=== PATIENT | male | born 1970 ===

== ENCOUNTER 2022-09-17 15:08 | Outpatient (CLI) | payer OTHER | END 2022-09-17 15:17 | disposition home or self-care (01) | LOC: RAD 15:08 | PROVIDERS: ATTEND Neurological Surgery | DX: M54.2 Cervicalgia (principal) ==

== ENCOUNTER 2025-01-03 13:50 | Outpatient (CLI) | payer OTHER | END 2025-01-03 13:58 | disposition home or self-care (01) | LOC: RAD 13:50 | PROVIDERS: ATTEND Family Medicine Geriatric Medicine | DX: M25.512 Pain in left shoulder (principal) ==

== ENCOUNTER 2025-01-04 12:05 | Outpatient (CLI) | payer OTHER ==
[2025-01-04 12:26] LABS: BASO % 0.9 % (0.1-1.2); EOS # 0.05 (0.04-0.54); EOS % 1.5 % (0.7-7.0); LYMPH # 0.67 (1.18-3.74); LYMPH % 19.6 % (19.3-53.1); MEAN PLATELET VOLUME 10.10 fl (9.4-12.4); MONO # 0.40 (0.24-0.82); MONO % 11.7 % (4.7-12.5); NEUT # 2.25 (1.56-6.13); NEUT % 66.0 % (34.0-71.1); RED CELL DISTRIBUTION WIDTH 11.9 % (11.6-14.4); URINE APPEARANCE Clear; URINE BILIRRUBIN Negative (NEGATIVE); URINE BLOOD Negative; URINE COLOR Yellow; URINE GLUCOSE Negative (NEGATIVE); URINE KETONE 15 (NEGATIVE); URINE LEUKOCYTE Negative; URINE NITRATE Negative; URINE PROTEIN Negative (NEGATIVE); URINE UROBILINOGEN 0.2 E.U./dl
[2025-01-04 12:30] LABS: URINE BACTERIA 41.9 uL (0.0-1933); URINE EPITHELIAL CELLS 1.9 uL (0.0-38.8); URINE RBC 3.9 uL (0.0-20.8); URINE WBC 5.8 uL (0.0-23.2)
[2025-01-04 12:36] LABS: URINE CAST 0.29 uL (0.0-1.40)
[2025-01-04 13:37] LABS: ALT/SGPT 37.0 U/L (12-78); AST/SGOT 22.0 U/L (15-37); BILIRUBIN TOTAL 1.17 mg/dL (0.3-1.2); BUN CREA RATIO 15.0 (7.0-25.0); CHOL HDL RATIO 3.9 (0-5.0); CREATININE SERUM 1.13 mg/dL (0.70-1.30); GFR 68.14; GLOBULINA 3.1 G/DL (2.4-3.5); GLUCOSE FASTING 89.0 mg/dL (65-100); HDL 76.0 mg/dl (40-60); LDL 194.0 mg/dl (0-130); OSMOLALITY SERUM 279.0 MOSM/KG (275-295); PROSTATIC SPECIFIC ANTIGEN 1.16 NG/ML (0.010-4.00); VLDL 26.0 (0-39)
== END 2025-01-04 12:17 | disposition home or self-care (01) ==
LOC: LAB 12:05
PROVIDERS: ATTEND Family Medicine Geriatric Medicine
DX: J30.9 Allergic rhinitis, unspecified (principal); R73.09 Other abnormal glucose; Z12.11 Encounter for screening for malignant neoplasm of colon; N40.0 Benign prostatic hyperplasia without lower urinary tract symptoms

== ENCOUNTER 2025-02-16 07:33 | Outpatient (CLI) | payer OTHER ==
[2025-02-16 09:15] LABS: BASO % 1.7 % (0.1-1.2); EOS # 0.13 (0.04-0.54); EOS % 3.7 % (0.7-7.0); LYMPH # 0.96 (1.18-3.74); LYMPH % 27.3 % (19.3-53.1); MEAN PLATELET VOLUME 10.90 fl (9.4-12.4); MONO # 0.46 (0.24-0.82); NEUT # 1.90 (1.56-6.13); NEUT % 53.9 % (34.0-71.1); RED CELL DISTRIBUTION WIDTH 11.8 % (11.6-14.4)
[2025-02-16 09:37] LABS: MONO % 13.1 % (4.7-12.5)
[2025-02-16 09:39] LABS: URINE APPEARANCE Clear; URINE BILIRRUBIN Negative (NEGATIVE); URINE BLOOD Negative; URINE COLOR Yellow; URINE GLUCOSE Negative (NEGATIVE); URINE KETONE Negative (NEGATIVE); URINE LEUKOCYTE Negative; URINE NITRATE Negative; URINE PROTEIN Negative (NEGATIVE); URINE UROBILINOGEN 0.2 E.U./dl
[2025-02-16 09:43] LABS: URINE BACTERIA 10.7 uL (0.0-1933); URINE WBC 5.6 uL (0.0-23.2)
[2025-02-16 09:56] LABS: ALT/SGPT 45.0 U/L (12-78); AST/SGOT 24.0 U/L (15-37); BILIRUBIN TOTAL 0.55 mg/dL (0.3-1.2); BUN CREA RATIO 23.0 (7.0-25.0); CHOL HDL RATIO 4.0 (0-5.0); CREATININE SERUM 1.11 mg/dL (0.70-1.30); GFR 69.56; GLOBULINA 2.8 G/DL (2.4-3.5); GLUCOSE FASTING 95.0 mg/dL (65-100); HDL 63.0 mg/dl (40-60); LDL 160.0 mg/dl (0-130); OSMOLALITY SERUM 289.0 MOSM/KG (275-295); TSH 1.75 uIU/mL (0.358-3.74); VLDL 27.0 (0-39)
[2025-02-16 09:59] LABS: URINE CAST 0.00 uL (0.0-1.40); URINE EPITHELIAL CELLS 1.2 uL (0.0-38.8); URINE RBC 1.6 uL (0.0-20.8)
[2025-02-16 11:55] LABS: ob NEGATIVE (NEGATIVE)
== END 2025-02-16 07:36 | disposition home or self-care (01) ==
LOC: LAB 07:33
PROVIDERS: ATTEND Family Medicine
DX: E78.00 Pure hypercholesterolemia, unspecified (principal); R73.03 Prediabetes; Z12.11 Encounter for screening for malignant neoplasm of colon; D72.819 Decreased white blood cell count, unspecified